=== PATIENT | male | born 1980 | race American Indian/Alaskan Native ===

== ENCOUNTER 2020-06-04 03:18 | Emergency (ER) | payer SELFPAY ==
[2020-06-04] MEDS ORDERED: LORazepam 0.5 MG Tab PO ONE (03:57)
--- NOTE | 2020-06-04 04:02 | EDM.PDOC ---
ED HPI GENERAL MEDICAL PROBLEM - General Chief Complaint: Respiratory Problem Stated Complaint: CANT BREATHE Time Seen by Provider: 06/04/20 03:45 Source of Information: Reports: Patient, RN, RN Notes Reviewed History Limitations: Reports: No Limitations - History of Present Illness INITIAL COMMENTS - FREE TEXT/NARRATIVE: Patient presents to ER with complaint of shortness of breath. Patient states history of asthma, history of COVID 1 month ago, and history of anxiety. Patient states he just recently moved here, states he has albuterol inhaler and nebulizers, but prescription has run out and he is out of these medications. Patient states he was tested for COVID last week and test came back negative. Patient states his mother had COVID and is currently on a ventilator, and has been for 4 weeks. Patient states he has been under a lot of stress recently, with his mother being ill, and his family fighting. Patient reports a burning sensation with deep inspiration. Admits to chills, unsure if he has had a fever. Admits to vomiting this morning, states he does have diarrhea from time to time as he is lactose intolerant and sometimes drinks milk. Denies chest p ains, but does state he has fractured ribs on the right side from 1 month ago. Patient states he is currently residing in a hotel here in town. States he came to town to get a job to make some money and a fresh start. Onset: Today, Gradual Generalized Pain Score (Numeric/FACES): 4 - Related Data Allergies Allergy/AdvReac Type Severity Reaction Status Date / Time No Known Allergies Allergy Verified 06/04/20 03:54 Home Meds: Home Meds FLUoxetine HCl [Fluoxetine HCl] 06/04/20 [History] Famotidine 06/04/20 [History] Fluticasone Propionate [Flonase] 06/04/20 [History] Gabapentin [Neurontin] 06/04/20 [History] LORazepam [Lorazepam] 06/04/20 [History] buPROPion [Wellbutrin SR] 06/04/20 [History] hydrOXYzine HCL [Atarax] 25 mg PO DAILY 06/04/20 [History] Past Medical History Cardiovascular History: Reports: Hypertension Respiratory History: Reports: Asthma, COPD Psychiatric History: Reports: Anxiety Social & Family History - Family History Family Medical History: Noncontributory - Tobacco Use Smoking Status *Q: Current Every Day Smoker Years of Tobacco use: 24 Packs/Tins Daily: 0.3 - Caffeine Use Caffeine Use: Reports: Coffee, Energy Drinks, Soda, Tea - Alcohol Use Date of Last Drink: 06/03/20 - Recreational Drug Use Recreational Drug Use: No ED ROS GENERAL - Review of Systems Review Of Systems: Comprehensive ROS is negative, except as noted in HPI. ED EXAM, GENERAL - Physical Exam Exam: See Below Exam Limited By: No Limitations General Appearance: Alert, WD/WN, Anxious, Mild Distress Eye Exam: Bilateral Eye: EOMI, Normal Inspection Ears: Normal External Exam, Hearing Grossly Normal Nose: Normal Inspection Throat/Mouth: Normal Inspection, Normal Voice, No Airway Compromise Head: Atraumatic, Normocephalic Neck: Normal Inspection, Supple, Non-Tender, Full Range of Motion Respiratory/Chest: No Respiratory Distress, Lungs Clear, No Accessory Muscle Use, Chest Non-Tender, Decreased Breath Sounds Cardiovascular: Normal Peripheral Pulses, Regular Rate, Rhythm, No Edema, No Gallop, No JVD, No Murmur, No Rub Peripheral Pulses: 2+: Radial (L), Radial (R) GI/Abdominal: Normal Bowel Sounds, Soft, Non-Tender (Male) Exam: Deferred Rectal (Males) Exam: Deferred Back Exam: Normal Inspection, Full Range of Motion, NT Extremities: Normal Inspection, Normal Range of Motion, Non-Tender, Normal Capillary Refill, No Pedal Edema Neurological: Alert, Oriented, CN II-XII Intact, Normal Cognition, Normal Gait, Normal Reflexes, No Motor/Sensory Deficits Psychiatric: Anxious Skin Exam: Warm, Dry, Intact, Normal Color, No Rash Lymphatic: No Adenopathy Course - Vital Signs Last Recorded V/S: Last Vital Signs Temp 98 F 06/04/20 03:23 Pulse 124 H 06/04/20 03:23 Resp 23 H 06/04/20 03:23 BP 150/87 H 06/04/20 03:23 Pulse Ox 94 L 06/04/20 03:23 - Orders/Labs/Meds Orders: Active Orders 24 hr Category Date Time Status Admission Diagnosis [ADT] Stat ADT 06/04/20 05:30 Ordered Admission Status [Patient Status] [ADT] Routine ADT 06/04/20 05:30 Active CULTURE BLOOD [BC] Stat Lab 06/04/20 04:42 Received CULTURE BLOOD [BC] Stat Lab 06/04/20 04:47 Received Blood Culture x2 Reflex Set [OM.PC] Stat Oth 06/04/20 04:33 Ordered Labs: Laboratory Tests 06/04/20 06/04/20 06/04/20 Range/Units 03:20 03:20 04:06 WBC 22.0 H (5.0-10.0) 10^3/uL RBC 3.96 L (4.6-6.2) 10^6/uL Hgb 11.9 L (14.0-18.0) g/dL Hct 35.7 L (40.0-54.0) % MCV 90.2 (80-100) fL MCH 30.1 (27.0-34.0) pg MCHC 33.3 (33.0-35.0) g/dL Plt Count 171 (150-450) 10^3/uL Neut % (Auto) 89.2 H (42.2-75.2) % Lymph % (Auto) 5.7 L (20.5-50.1) % [place] % (Auto) 4.6 (2-8) % Eos % (Auto) 0.3 L (1.0-3.0) % Baso % (Auto) 0.2 (0.0-1.0) % Sodium (136-145) mmol/L Potassium (3.5-5.1) mmol/L Chloride (98-107) mmol/L Carbon Dioxide (21-32) mmol/L Anion Gap (7-13) mEq/L BUN (7-18) mg/dL Creatinine (0.70-1.30) mg/dL Est Cr Clr Drug Dosing mL/min Estimated GFR (MDRD) BUN/Creatinine Ratio (No establ ref range) Glucose (74-99) mg/dL Lactic Acid (0.4-2.0) mmol/L Calcium (8.5-10.1) mg/dL Total Bilirubin (0.2-1.0) mg/dL AST (15-37) U/L ALT (16-63) U/L Alkaline Phosphatase (46-116) U/L Total Protein (6.4-8.2) g/dL Albumin (3.4-5.0) g/dL Globulin Albumin/Globulin Ratio Urine Color Yellow (YELLOW) Urine Appearance Clear (CLEAR) Urine pH 7.0 (5.0-9.0) Ur Specific [place] <= 1.005 (1.005-1.030) Urine Protein Negative (NEGATIVE) Urine Glucose (UA) Negative (NEGATIVE) Urine Ketones Negative (NEGATIVE) Urine Occult Blood Trace-intact H (NEGATIVE) Urine Nitrite Negative (NEGATIVE) Urine Bilirubin Negative (NEGATIVE) Urine Urobilinogen 0.2 (0.2-1.0) mg/dL Ur Leukocyte Esterase Negative (NEGATIVE) Urine RBC 0-5 /HPF Urine WBC 0-5 (0-5/HPF) /HPF Ur Epithelial Cells Rare (NOT SEEN) /HPF Amorphous Sediment Few (NOT SEEN) /HPF Urine Bacteria Occasional (0-FEW/HPF) /HPF Urine Mucus Occasional (NOT SEEN) /LPF Urine Opiates Screen Negative (NEGATIVE) Ur Oxycodone Screen Negative (NEGATIVE) Urine Methadone Screen Negative (NEGATIVE) Ur Barbiturates Screen Negative (NEGATIVE) U Tricyclic Antidepress Negative (NEGATIVE) Ur Phencyclidine Scrn Negative (NEGATIVE) Ur Amphetamine Screen Negative (NEGATIVE) U Methamphetamines Scrn Negative (NEGATIVE) Urine MDMA Screen Negative (NEGATIVE) U Benzodiazepines Scrn Positive H (NEGATIVE) Urine Cocaine Screen Negative (NEGATIVE) U Marijuana (THC) Screen Negative (NEGATIVE) COVID-19 (SINA) (NEGATIVE) 06/04/20 06/04/20 06/04/20 Range/Units 04:06 04:40 04:42 WBC (5.0-10.0) 10^3/uL RBC (4.6-6.2) 10^6/uL Hgb (14.0-18.0) g/dL Hct (40.0-54.0) % MCV (80-100) fL MCH (27.0-34.0) pg MCHC (33.0-35.0) g/dL Plt Count (150-450) 10^3/uL Neut % (Auto) (42.2-75.2) % Lymph % (Auto) (20.5-50.1) % [place] % (Auto) (2-8) % Eos % (Auto) (1.0-3.0) % Baso % (Auto) (0.0-1.0) % Sodium 138 (136-145) mmol/L Potassium 2.8 L (3.5-5.1) mmol/L Chloride 103 (98-107) mmol/L Carbon Dioxide 25 (21-32) mmol/L Anion Gap 12.8 (7-13) mEq/L BUN 8 (7-18) mg/dL Creatinine 0.83 (0.70-1.30) mg/dL Est Cr Clr Drug Dosing 128.52 mL/min Estimated GFR (MDRD) > 60 BUN/Creatinine Ratio 9.6 (No establ ref range) Glucose 139 H (74-99) mg/dL Lactic Acid 1.0 (0.4-2.0) mmol/L Calcium 7.9 L (8.5-10.1) mg/dL Total Bilirubin 1.0 (0.2-1.0) mg/dL AST 22 (15-37) U/L ALT 22 (16-63) U/L Alkaline Phosphatase 64 (46-116) U/L Total Protein 6.3 L (6.4-8.2) g/dL Albumin 2.9 L (3.4-5.0) g/dL Globulin 3.4 Albumin/Globulin Ratio 0.85 Urine Color (YELLOW) Urine Appearance (CLEAR) Urine pH (5.0-9.0) Ur Specific [place] (1.005-1.030) Urine Protein (NEGATIVE) Urine Glucose (UA) (NEGATIVE) Urine Ketones (NEGATIVE) Urine Occult Blood (NEGATIVE) Urine Nitrite (NEGATIVE) Urine Bilirubin (NEGATIVE) Urine Urobilinogen (0.2-1.0) mg/dL Ur Leukocyte Esterase (NEGATIVE) Urine RBC /HPF Urine WBC (0-5/HPF) /HPF Ur Epithelial Cells (NOT SEEN) /HPF Amorphous Sediment (NOT SEEN) /HPF Urine Bacteria (0-FEW/HPF) /HPF Urine Mucus (NOT SEEN) /LPF Urine Opiates Screen (NEGATIVE) Ur Oxycodone Screen (NEGATIVE) Urine Methadone Screen (NEGATIVE) Ur Barbiturates Screen (NEGATIVE) U Tricyclic Antidepress (NEGATIVE) Ur Phencyclidine Scrn (NEGATIVE) Ur Amphetamine Screen (NEGATIVE) U Methamphetamines Scrn (NEGATIVE) Urine MDMA Screen (NEGATIVE) U Benzodiazepines Scrn (NEGATIVE) Urine Cocaine Screen (NEGATIVE) U Marijuana (THC) Screen (NEGATIVE) COVID-19 (SINA) Negative (NEGATIVE) Meds: Medications Discontinued Medications Generic Name Dose Route Start Last Admin Trade Name Freq PRN Reason Stop Dose Admin Acetaminophen 650 mg 06/04/20 04:39 06/04/20 04:57 Tylenol PO 06/04/20 04:40 650 mg NOW ONE Administration Sodium Chloride 1,000 mls @ 125 mls/hr 06/04/20 04:39 06/04/20 04:59 Normal Saline IV 06/04/20 12:38 125 mls/hr CONTINUOUS ONE Administration Ceftriaxone Sodium 1 gm/ 50 mls @ 100 mls/hr 06/04/20 04:40 06/04/20 05:00 Sodium Chloride IV 06/04/20 05:09 100 mls/hr ONETIME ONE Administration Potassium Chloride 20 meq/ 100 mls @ 50 mls/hr 06/04/20 05:30 Premix IV 06/04/20 07:29 ONETIME ONE Lorazepam 0.5 mg 06/04/20 03:57 06/04/20 04:03 Ativan PO 06/04/20 03:58 0.5 mg ONETIME ONE Administration Potassium Chloride 40 meq 06/04/20 04:40 06/04/20 04:58 Klor-Con 10 PO 06/04/20 04:41 40 meq ONETIME ONE Administration - Radiology Interpretation Free Text/Narrative:: Chest x-ray: See radiologist report - Re-Assessments/Exams Free Text/Narrative Re-Assessment/Exam: 06/04/20 05:52 Had discussed patient case with Dr. Mcneal who agreed to admit the patient for inpatient admission. After IV Rocephin received, patient states he would like to leave. Patient advised that antibiotics and treatment are necessary due to the severity of his pneumonia. Patient states his mother is in critical condition on a ventilator in [place]. States he would prefer to be there in the same hospital as her so he can be close in case something happens to her. Patient also states the only ride he would have there is here right now and is heading to [place]. AMA signed by patient. 06/04/20 05:55 Departure - Departure Time of Disposition: 05:52 Disposition: Against Medical Advice 07 Condition: Fair Clinical Impression: Pneumonia Qualifiers: Pneumonia type: due to unspecified organism Laterality: bilateral Lung location: lower lobe of lung Qualified Code(s): J18.9 - Pneumonia, unspecified organism Asthma Qualifiers: Asthma severity: unspecified severity Asthma persistence: unspecified Asthma complication type: unspecified Qualified Code(s): J45.909 - Unspecified asthma, uncomplicated - Discharge Information *PRESCRIPTION DRUG MONITORING PROGRAM REVIEWED*: No *COPY OF PRESCRIPTION DRUG MONITORING REPORT IN PATIENT ETHEL: No Forms: ED Department Discharge Sepsis Event Note (ED) - Evaluation Sepsis Screening Result: No Definite Risk - Focused Exam Vital Signs: Vital Signs Temp Pulse Resp BP Pulse Ox 06/04/20 03:23 98 F 124 H 23 H 150/87 H 94 L - My Orders Last 24 Hours: My Active Orders 06/04/20 04:33 Blood Culture x2 Reflex Set [OM.PC] Stat 06/04/20 04:42 CULTURE BLOOD [BC] Stat 06/04/20 04:47 CULTURE BLOOD [BC] Stat 06/04/20 05:30 Admission Diagnosis [ADT] Stat Admission Status [Patient Status] [ADT] Routine - Assessment/Plan Last 24 Hours: My Active Orders 06/04/20 04:33 Blood Culture x2 Reflex Set [OM.PC] Stat 06/04/20 04:42 CULTURE BLOOD [BC] Stat 06/04/20 04:47 CULTURE BLOOD [BC] Stat 06/04/20 05:30 Admission Diagnosis [ADT] Stat Admission Status [Patient Status] [ADT] Routine
--- NOTE | 2020-06-04 04:24 | CR ---
PROCEDURE INFORMATION: Exam: XR Chest, 1 View Exam date and time: 06/04/2020 4:14 AM Age: 40 years old Clinical indication: Shortness of breath; Patient HX: Prior not performed here, unavailable; Additional info: SOB, past HX covid, asthma TECHNIQUE: Imaging protocol: XR of the chest Views: 1 view. COMPARISON: No relevant prior studies available. FINDINGS: Lungs: Bilateral lung infiltrates consistent with bilateral pneumonia. Pleural space: Unremarkable. No pleural effusion. No pneumothorax. Heart/Mediastinum: Unremarkable. No cardiomegaly. Bones/joints: Unremarkable. IMPRESSION: Acute appearing bilateral infiltrates consistent with bilateral Pneumonia
[2020-06-04 04:33] LABS: ANION GAP 12.8 mEq/L (7-13); CHLORIDE,CL 103 mmol/L (98-107); SODIUM,NA 138 mmol/L (136-145)
[2020-06-04] MEDS ORDERED: Acetaminophen 325 MG Tab PO ONE (04:39)
[2020-06-04] MEDS ORDERED: Sodium Chloride 0.9% 1,000 ML IV ONE (04:39)
[2020-06-04] MEDS ORDERED: Potassium Chloride 10 MEQ Tab.ER PO ONE (04:40)
[2020-06-04] MEDS ORDERED: cefTRIAXone 1 GM in Sodium Chloride 0.9% 50 ML IV ONE (04:40)
[2020-06-04] MEDS ORDERED: Potassium Chloride 20 MEQ in Premix Bag 1 BAG IV ONE (05:30)
== END 2020-06-04 05:51 | disposition left against medical advice (07) ==
LOC: DL.ED 03:18 → DL.MS 05:30 → UNDOADMIN 05:30
DX: J18.9 Pneumonia, unspecified organism (principal); J45.909 Unspecified asthma, uncomplicated; F17.210 Nicotine dependence, cigarettes, uncomplicated; I10 Essential (primary) hypertension; J44.9 Chronic obstructive pulmonary disease, unspecified; Z79.899 Other long term (current) drug therapy; Z20.828 Contact with and (suspected) exposure to other viral communicable diseases
CPT/HCPCS: 36415; 71045; 80053; 80305; 81001; 83605; 85025; 87040; 87635; 96365; 99283; 99285; A9270; J0696; J7030; J7050; U0002